=== PATIENT | female | born 1990 | race Asian ===

== ENCOUNTER 2023-09-26 10:30 | Day surgery (SDC) | payer BC ==
[2023-09-23 11:36] VITALS: BMI 19.5
[2023-09-26] MEDS ORDERED: Midazolam HCl 2 mg/2 ml Vial ONE (11:55)
[2023-09-26] MEDS ORDERED: fentaNYL 50 mcg/mL 1 mL Vial ONE ×2 (11:55→13:19)
[2023-09-26] MEDS ORDERED: Bupivacaine PF 0.5% 30 ML VIAL ONE (11:56)
[2023-09-26] MEDS ORDERED: Bupivacaine HCl 0.5%/Epinephrine 1:200,000/PF 30 ml Vial ONE (12:17)
[2023-09-26] MEDS ORDERED: CEFAZOLIN 2 GM VIAL ONE (12:27)
[2023-09-26] MEDS ORDERED: Sodium Chloride 0.9% 100 ML ONE (12:28)
[2023-09-26 12:46] LABS: BHCG - Serum Negative (NEGATIVE); Pregs Control Background? CLEAR/WHITE (CLR/WHITE); Pregs Control Bar Appear? YES (CONTROL BAR)
[2023-09-26] MEDS ORDERED: PROPOFOL 40 ML ONE (13:19)
[2023-09-26] MEDS ORDERED: Ondansetron PF 4 MG/2 ML Vial ONE (13:22)
[2023-09-26] MEDS ORDERED: Dexamethasone 4 mg/ml Vial ONE (13:22)
[2023-09-26] MEDS ORDERED: Dexmedetomidine 200 MCG/2 ML VIAL ONE (13:22)
[2023-09-26] MEDS ORDERED: PHENYLEPHRINE-NS 100 MCG/ML 10 ML SYRINGE ONE (13:35)
[2023-09-26] MEDS ORDERED: Ketorolac Tromethamine 30 MG (1 mL) VIAL ONE (13:51)
[2023-09-26] MEDS ORDERED: Glycopyrrolate 0.2 MG/ML 5 ML SYRINGE ONE (14:18)
== END 2023-09-26 15:50 | disposition home or self-care (01) ==
LOC: SDC 10:30
PROVIDERS: ATTEND Orthopaedic Surgery
PROC: 0PSH04Z Reposition Right Radius with Internal Fixation Device, Open Approach (ICD-10-PCS; principal; 2023-09-26)
DX: S52.551A Other extraarticular fracture of lower end of right radius, initial encounter for closed fracture (principal); X58.XXXA Exposure to other specified factors, initial encounter
CPT/HCPCS: 84703; C1713; J0665; J1100; J1885; J2250; J2405; J2704; J3010; J3490